=== PATIENT | female | born 1955 | race Caucasian/White ===

== ENCOUNTER 2023-04-15 09:04 | Emergency (ER) | payer MEDICARE, BC, SELFPAY ==
[2023-04-15] VITALS (10 sets, daily range): BP systolic 117–160; BP diastolic 61–73; PULSE 63–72; RESP 16–24; TEMP 36.4; O2SAT 92–98; BMI 28.3
--- NOTE | 2023-04-15 09:17 | DI.RAD.S_ITS ---
PROCEDURE: XR CHEST 1V INDICATIONS: chest pain TECHNIQUE: One view of the chest was acquired. COMPARISON: None. FINDINGS: Surgical changes and devices: None. Lungs and pleura: Lungs are clear. No pleural effusions or pneumothorax. Mediastinum: Mediastinal contours appear normal. Heart size is normal. Bones and chest wall: No suspicious bony lesions. Overlying soft tissues appear unremarkable. IMPRESSION: No acute cardiopulmonary abnormality is seen. Dictated by: Shannon Murrell M.D. on 04/15/2023 at 10:04 Approved by: Shannon Murrell M.D. on 04/15/2023 at 10:04
[2023-04-15 09:29] LABS: HEMOLYSIS < 15 (0-50)
[2023-04-15 09:31] LABS: Prothrombin Time 11.9 SECONDS (9.4-12.5)
[2023-04-15 09:32] LABS: Add Manual Diff / Slide Review NO; Basophils Absolute Auto 100 /uL (0-100); Basophils Percent Auto 0.8 % (0-2); Eosinophils Absolute Auto 100 /uL (0-450); Eosinophils Percent Auto 1.5 % (2-4); Hematocrit 42.6 % (36-46); Hemoglobin 14.2 g/dL (12.0-16.0); Lymphocytes Absolute Auto 2000 /uL (1100-4500); Lymphocytes Percent Auto 31.4 % (25-40); Mean Corpuscular HGB Conc 33.3 % (30-36); Mean Corpuscular Hemoglobin 29.7 PG (26-34); Monocytes Absolute Auto 600 /uL (0-900); Monocytes Percent Auto 9.3 % (3-14); Neutrophils Absolute Auto 3600 /uL (1500-7000); Platelet Count 243 X10^3/uL (150-400); Red Blood Cell Count 4.79 X10^6/uL (4.0-5.2); Red Cell Distribution Width 14.3 % (11.6-14.8); White Blood Cell Count 6.4 X10^3/uL (4.5-11.0)
[2023-04-15 09:34] LABS: Alanine Aminotransferase 35 IU/L (<35); Albumin 4.2 g/dL (3.5-5.0); Albumin Globulin Ratio 1.3 (1.0-2.8); Alkaline Phosphatase 87 U/L (38-126); Aspartate Aminotransferase 34 IU/L (14-36); BUN Creatinine Ratio 25.7 (6-22); Bilirubin Total 0.6 mg/dL (0.2-1.3); Blood Urea Nitrogen 19 mg/dL (7-17); Calcium 9.4 mg/dL (8.4-10.2); Carbon Dioxide 25 mmol/L (22-32); Chloride 107 mmol/L (98-107); Creatine Kinase 106 U/L (30-135); Estimated Glomerular Filt Rate > 60 mL/min (>60); Globulin 3.2 g/dL (1.7-4.1); Glucose 162 mg/dL (80-110); Lipase 102 U/L (23-300); Magnesium 2.2 mg/dL (1.6-2.3); PTT Partial Thromboplastin Tim 32 SECONDS (25.1-36.5); Potassium 4.1 mmol/L (3.4-5.1); Sodium 140 mmol/L (137-145); Total Protein 7.4 g/dL (6.3-8.2)
--- NOTE | 2023-04-15 09:45 | ED.CHESTPAIN ---
HPI - Chest Pain General Chief Complaint: Chest Pain Stated Complaint: tightness in chest and back Time Seen by Provider: 04/15/23 09:33 Source: patient Mode of arrival: Ambulatory Limitations: no limitations History of Present Illness HPI narrative: This is a 68-year-old female with history of dyslipidemia with complaint of chest tightness that has been bandlike for the past 6 days. Patient states it has been pretty much continuous has gone away little bit yesterday or not been as intense. She states nothing really seems to make it better or worse throughout the week but noted today maybe food made it worse. Denies any shortness of breath, no lightheadedness. She denies pain. Denies any nausea or vomiting. No diaphoresis. No swelling of extremities. No cough cold or congestion symptoms. No issues with bowel movements, no changes with urination. She states she has not appreciated symptoms regularly in the past. She states her only medications for cholesterol. No prior surgeries. No tobacco, occasional alcohol, no recreational drugs. Both parents had congestive heart failure but later in life. She is unaware of any cardiac issues with siblings. With a reported pulmonary embolic history. She is currently visiting the area and was on [place]. She lives in the [facility]. Related Data Previous Rx's Medication Instructions Recorded sulfamethoxazole 800 1 tab PO BID ##20 11/29/12 mg-trimethoprim 160 mg tablet Allergies Allergy/AdvReac Type Severity Reaction Status Date / Time No Known Drug Allergies Allergy Verified 04/15/23 09:17 Review of Systems Review of Systems ROS Unobtainable: All systems reviewed & are unremarkable except as noted in HPI and below Patient History Social History Smoking Status: Never smoker Smoking Status: Never smoker alcohol intake frequency: a few times a week Substance Use Type: does not use Exam Narrative Exam Narrative: GENERAL: Alert and oriented x three, male in mild distress HEENT: Head normocephalic, atraumatic, EOMI, pupils reactive, face symmetric, moist mucous membranes NECK: Supple, full range of motion CARDIOVASCULAR: Regular rate and rhythm without murmurs, rubs or gallops. No reproducible chest pain or pressure. RESPIRATORY: Breath sounds equal bilaterally, no wheezes rales or rhonchi. No tachypnea accessory muscle use. ABDOMEN: Soft, nontender. Normoactive bowel sounds all 4 quadrants. No guarding or rebound, rigidity, no mass : No CVA tenderness EXTREMITIES: Normal range of motion, no clubbing or edema. +pulses bilateral lower extremities. Neurovascularly intact NEUROLOGICAL: Cranial nerves II through XII grossly intact. Moving all extremities SKIN: Warm, dry, no petechiae, no rashes or lesions. Initial Vital Signs Initial Vital Signs: Vital Signs Pulse Rate 72 04/15/23 09:09 Pulse Oximetry 94 04/15/23 09:09 Scores HEART Score Heart Score history: Slightly Suspicious Heart Score EKG: Normal Heart Score Age: > or = 65 years old Heart Score risk factors: 1-2 risk factors Heart Score troponin: < or = to normal limit Heart Score Total: 3 Course Orders Ordered: ED Orders 04/15/23 09:13 Complete Blood Count AUTO DIFF Stat Comprehensive Metabolic Panel Stat D Dimer Stat Lipase Stat Magnesium Stat PTT Partial Thromboplastin [place] Stat Prothrombin Time INR Stat Troponin & CK Cardiac Panel Stat 04/15/23 09:17 XR chest 1V Stat 04/15/23 10:00 BNP [NT-proBNP (BNP-Adult 18+)] Stat 04/15/23 11:18 Trop I [Troponin I] Stat 04/15/23 11:27 EKG-12 Lead Stat Discontinued Medications Aspirin (Aspirin 81 Mg Chew Tab) 324 mg PO NOW ONE Stop: 04/15/23 09:18 Last Admin: 04/15/23 09:47 Dose: 324 mg Documented By: GELA Vital Signs Vital signs: Vital Signs - 8 hr 04/15/23 10:00 04/15/23 10:00 04/15/23 10:32 Pulse Rate 69 71 Respiratory Rate 21 Blood Pressure 117/67 Pulse Oximetry 92 96 04/15/23 10:33 04/15/23 10:33 04/15/23 11:00 Pulse Rate 63 Respiratory Rate Blood Pressure 129/61 125/65 Pulse Oximetry 95 04/15/23 11:00 04/15/23 11:30 04/15/23 12:00 Pulse Rate 65 64 66 Respiratory Rate 24 19 20 Blood Pressure Pulse Oximetry 92 93 94 MDM - Chest Pain Lab Data 04/15/23 09:13 04/15/23 09:13 Labs: Lab Results 04/15/23 04/15/23 04/15/23 Range/Units 09:13 10:00 11:18 WBC 6.4 (4.5-11.0) X10^3/uL RBC 4.79 (4.0-5.2) X10^6/uL Hgb 14.2 (12.0-16.0) g/dL Hct 42.6 (36-46) % MCV 89.0 (80-100) fL MCH 29.7 (26-34) PG MCHC 33.3 (30-36) % RDW 14.3 (11.6-14.8) % Plt Count 243 (150-400) X10^3/uL Neut % (Auto) 57.0 (50-75) % Lymph % (Auto) 31.4 (25-40) % [place] % (Auto) 9.3 (3-14) % Eos % (Auto) 1.5 L (2-4) % Baso % (Auto) 0.8 (0-2) % Neut # (Auto) 3600 (6100-2689) /uL Lymph # (Auto) 2000 (7308-9538) /uL [place] # (Auto) 600 (0-900) /uL Eos # (Auto) 100 (0-450) /uL Baso # (Auto) 100 (0-100) /uL PT 11.9 (9.4-12.5) SECONDS INR 1.0 (0.9-1.3) APTT 32 (25.1-36.5) SECONDS D-Dimer 268 (<500) ng/ml Sodium 140 (137-145) mmol/L Potassium 4.1 (3.4-5.1) mmol/L Chloride 107 (98-107) mmol/L Carbon Dioxide 25 (22-32) mmol/L BUN 19 H (7-17) mg/dL Creatinine 0.74 (0.52-1.04) mg/dL Estimated GFR > 60 (>60) mL/min BUN/Creatinine Ratio 25.7 H (6-22) Glucose 162 H (80-110) mg/dL Calcium 9.4 (8.4-10.2) mg/dL Magnesium 2.2 (1.6-2.3) mg/dL Total Bilirubin 0.6 (0.2-1.3) mg/dL AST 34 (14-36) IU/L ALT 35 H (<35) IU/L Alkaline Phosphatase 87 (38-126) U/L Total Creatine Kinase 106 (30-135) U/L Troponin I < 0.012 < 0.012 (0.01-0.034) ng/mL NT-Pro-B Natriuret Pep 52 (<125) pg/mL Total Protein 7.4 (6.3-8.2) g/dL Albumin 4.2 (3.5-5.0) g/dL Globulin 3.2 (1.7-4.1) g/dL Albumin/Globulin Ratio 1.3 (1.0-2.8) Lipase 102 (23-300) U/L Urine Dip Bedside Urine Glucose Negative Bedside Urine Bilirubin - Negative Bedside Urine Ketone - Negative Urine Specific [place] 1.020 Bedside Urine Occult Blood - Negative Bedside Urine pH 6.0 Bedside Urine Protein - Negative Bedside Urine Urobilinogen - Negative Bedside Urine Nitrite - Negative Bedside Urine Leukocytes - Negative Esterase Imaging Data Chest x-ray: Radiologist's Impression: Close Chest X-Ray (Signed) Shannon Murrell - 04/15/23 [place] [address] XRay Report Signed Patient: Jacque Rucker MR#: [id number] : 1955 Acct:[id number] Age/Sex: 68 / F Date of Service: 04/15/23 Loc: ED Accession Number: [id number] Procedure: XR chest 1V Ordering Provider: Coleen Smith D.O. PROCEDURE: XR CHEST 1V INDICATIONS: chest pain TECHNIQUE: One view of the chest was acquired. COMPARISON: None. FINDINGS: Surgical changes and devices: None. Lungs and pleura: Lungs are clear. No pleural effusions or pneumothorax. Mediastinum: Mediastinal contours appear normal. Heart size is normal. Bones and chest wall: No suspicious bony lesions. Overlying soft tissues appear unremarkable. IMPRESSION: No acute cardiopulmonary abnormality is seen. Dictated by: Shannon Murrell M.D. on 04/15/2023 at 10:04 Approved by: Shannon Murrell M.D. on 04/15/2023 at 10:04 ECG Data Attestation: I personally reviewed and interpreted this ECG as follows: Prior ECG tracings: not available for review Interpretation: Sinus rhythm rate of 70 SD 164 QRS of [address]TC [address] No acute [address] elevation nonspecific change. No priors available. EKG 2. Sinus rhythm 64 SD 168 QRS 88 QTC is 614, nonspecific change. No acute ST elevation or depression. MDM Narrative Medical decision making narrative: 68-year-old female with chest tightness for the past 6 days. Patient states has been pretty persistent without any resolution until today. Initial workup including CBC, CMP, coags, LFTs and troponin shows no clear cause. EKG has some nonspecific change but no acute ST elevation depression appreciated. Chest x-ray is negative. Patient has recently flown to the area so D-dimer was included and is negative. Repeat troponin is negative and EKG is negative. Repeat EKG shows acute changes Discussed findings with patient. My suspicion for cardiac sources is lower with 6 days of symptoms that have been constant with negative EKG and troponin without dynamic changes, no other clear source cause workup. Patient is felt appropriate for discharge home. Discharge Plan Departure Patient Disposition: Home Clinical Impression: Atypical chest pain Activity Restrictions/Additional Instructions: Please follow up for recheck if you are having any persistent symptoms. \ You may continue home medications as prescribed. Please return for new or worsening symptoms, new or worsening chest pain, shortness of breath, lightheadedness or passing out, new swelling in your extremities or other new or concerning changes. Prescriptions: No Action sulfamethoxazole-trimethoprim 800 MG/160 MG tablet 1 tab PO BID Qty: 20 0RF Stand Alone Forms: Patient Portal/API
[2023-04-15] MEDS: ASPIRIN 81 MG CHEW TAB 324 MG PO (09:47)
[2023-04-15 09:48] LABS: Troponin I < 0.012 ng/mL (0.01-0.034)
[2023-04-15 10:13] LABS: D Dimer 268 ng/ml (<500)
[2023-04-15 10:17] LABS: NT-proBNP (BNP-Adult 18+) 52 pg/mL (<125)
[2023-04-15 11:50] LABS: Troponin I < 0.012 ng/mL (0.01-0.034)
== END 2023-04-15 12:09 | disposition home or self-care (01) ==
PROVIDERS: Emergency Provider Emergency Medicine
DX: R07.89 Other chest pain (principal)
CPT/HCPCS: 36415; 71045; 80053; 81003; 82550; 83690; 83735; 83880; 84484; 85025; 85379; 85610; 85730; 93005; 93010; 99284